=== PATIENT | female | born 1980 | race Caucasian/White ===

== ENCOUNTER 2016-10-13 11:12 | Emergency (ER) | payer SELFPAY ==
--- NOTE | 2016-10-13 11:28 | EDM.PDOC ---
ED HPI GENERAL MEDICAL PROBLEM - General Chief Complaint: Gastrointestinal Problem Stated Complaint: THROWING UP Time Seen by Provider: 10/13/16 11:27 Source of Information: Reports: Patient - History of Present Illness INITIAL COMMENTS - FREE TEXT/NARRATIVE: HISTORY AND PHYSICAL: History of present illness: []Patient presents with vomiting over the last 24 hours States she does feel feverish with nausea and of course multiple episodes of vomiting unable to keep down any food even saltine crackers, no diarrhea constipation chest pain shortness breath headache dizziness or palpitation no bowel or urine symptoms History of IV drug use, the patient does think she has hepatitis C is not certain she may have had some testing done through [facility] Review of systems: As per history of present illness and below otherwise all systems reviewed and negative. Past medical history: As per history of present illness and as reviewed below otherwise noncontributory. Surgical history: As per history of present illness and as reviewed below otherwise noncontributory. Social history: No reported history of drug or alcohol abuse. Family history: As per history of present illness and as reviewed below otherwise noncontributory. Physical exam: HEENT: Atraumatic, normocephalic, pupils reactive, negative for conjunctival pallor or scleral icterus, mucous membranes moist, throat clear, neck supple, nontender, trachea midline. Lungs: Clear to auscultation, breath sounds equal bilaterally, chest nontender. Heart: S1S2, regular, negative for clicks, rubs, or JVD. Abdomen: Soft, nondistended, nontender. Negative for masses or hepatosplenomegaly. Negative for costovertebral tenderness. Pelvis: Stable nontender. Genitourinary: Deferred. Rectal: Deferred. Extremities: Atraumatic, negative for cords or calf pain. Neurovascular unremarkable. Neuro: Awake, alert, oriented. Cranial nerves II through XII unremarkable. Cerebellum unremarkable. Motor and sensory unremarkable throughout. Exam nonfocal. Diagnostics: []Lab as below Ultrasound right upper quadrant limited CT abdomen pelvis with contrast Therapeutics: []1 L normal saline bolus Zofran 8 mg IV After lengthy workup and consultation with GI in mind Dr. Terri López we were awaiting the INR results to decide if we would admit the patient here in [place] for transfer to [facility], patient became impatient and essentially eloped to smoke a cigarette she desired to drive to minus nursing staff caught up with her in the parking lot did remove her IV patient states she will be traveling to [place] will be seen through the ER on her own she has her boyfriend that is driving her. I feel that she probably will show up in mind that however she eloped from our ER tonight, I did call and talk to El[place] Rodriguez knee is updated that if she does show up in mind that we have lots of lab and imaging that we can forward onto them and Dr. Mead GI specialist is also aware patient Impression: []Vomiting Elevated liver function History of IV drug use Definitive disposition and diagnosis as appropriate pending reevaluation and review of above. headache Pain Score (Numeric/FACES): 6 - Related Data Allergies Allergy/AdvReac Type Severity Reaction Status Date / Time Penicillins Allergy Swelling Verified 10/13/16 11:30 Home Meds: Home Meds Cephalexin [Keflex] 500 mg PO Q6HR 10/13/16 [History] Past Medical History - Past Health History Medical/Surgical History: Denies Medical/Surgical History Social & Family History - Family History Endocrine/Metabolic: Reports: Diabetes, Type I Oncologic: Reports: Other (See Below) Other Oncologic Family History: stomach ca - Tobacco Use Smoking Status *Q: Current Every Day Smoker Years of Tobacco use: 5 Packs/Tins Daily: 0.5 - Caffeine Use Caffeine Use: Reports: Coffee - Recreational Drug Use Recreational Drug Use: No ED ROS GENERAL - Review of Systems Review Of Systems: ROS reveals no pertinent complaints other than HPI. ED EXAM, GENERAL - Physical Exam Exam: See Below Course - Vital Signs Last Recorded V/S: Last Vital Signs Temp 36.6 C 10/13/16 14:20 Pulse 84 10/13/16 14:20 Resp 16 10/13/16 14:20 BP 102/59 L 10/13/16 14:20 Pulse Ox 98 10/13/16 14:20 - Orders/Labs/Meds Orders: Active Orders 24 hr Category Date Time Status HEPATITIS PANEL, ACUTE [REF] Stat Lab 10/13/16 11:35 Received Labs: Laboratory Tests 10/13/16 10/13/16 10/13/16 Range/Units 11:35 11:35 11:35 WBC 6.33 (4.0-11.0) K/uL RBC 4.67 (4.30-5.90) M/uL Hgb 13.5 (12.0-16.0) g/dL Hct 39.5 (36.0-46.0) % MCV 84.6 (80.0-98.0) fL MCH 28.9 (27.0-32.0) pg MCHC 34.2 (31.0-37.0) g/dL RDW Std Deviation 40.9 (28.0-62.0) fl RDW Coeff of Eliud 14 (11.0-15.0) % Plt Count 195 (150-400) K/uL MPV 8.80 (7.40-12.00) fL Add Manual Diff YES Neutrophils % (Manual) 59 (48.0-80.0) % Band Neutrophils % 24 % Lymphocytes % (Manual) 11 L (16.0-40.0) % Monocytes % (Manual) 5 (0.0-15.0) % Eosinophils % (Manual) 1 (0.0-7.0) % Nucleated RBC % 0.0 /100WBC Absolute Seg Neuts 3.7 Band Neutrophils # 1.5 Lymphocytes # (Manual) 0.7 Monocytes # (Manual) 0.3 Eosinophils # (Manual) 0.1 Nucleated RBCs # 0 K/uL INR 1.26 H (0.86-1.11) Sodium 134 L (136-146) mmol/L Potassium 3.4 L (3.5-5.1) mmol/L Chloride 102 (98-110) mmol/L Carbon Dioxide 20 L (21-31) mmol/L BUN 14 (6.0-23.0) mg/dL Creatinine 0.9 (0.6-1.5) mg/dL Est Cr Clr Drug Dosing 72.17 mL/min Estimated GFR (MDRD) > 60.0 ml/min Glucose 152 H (60-110) mg/dL Calcium 8.7 L (8.8-10.8) mg/dL Total Bilirubin 2.6 H (0.1-1.5) mg/dL AST 349 H (5-40) IU/L ALT 657 H (8-54) IU/L Alkaline Phosphatase 256 H (40-150) Ammonia (14-68) UG/DL Total Protein 7.2 (6.0-8.0) g/dL Albumin 3.8 (3.5-5.0) g/dL Globulin 3.4 (2.0-3.5) g/dL Albumin/Globulin Ratio 1.1 L (1.3-2.8) Urine Color Urine Appearance Urine pH (5.0-8.0) Ur Specific [place] (1.001-1.035) Urine Protein (NEGATIVE) mg/dL Urine Glucose (UA) (NEGATIVE) mg/dL Urine Ketones (NEGATIVE) mg/dL Urine Occult Blood (NEGATIVE) Urine Nitrite (NEGATIVE) Urine Bilirubin (NEGATIVE) Urine Urobilinogen (<2.0) EU/dL Ur Leukocyte Esterase (NEGATIVE) Urine RBC (0-2/HPF) Urine WBC (0-5/HPF) Ur Epithelial Cells (NONE-FEW) Urine Bacteria (NEGATIVE) Urine HCG, Qual (NEGATIVE) 10/13/16 10/13/16 10/13/16 Range/Units 11:40 11:40 14:11 WBC (4.0-11.0) K/uL RBC (4.30-5.90) M/uL Hgb (12.0-16.0) g/dL Hct (36.0-46.0) % MCV (80.0-98.0) fL MCH (27.0-32.0) pg MCHC (31.0-37.0) g/dL RDW Std Deviation (28.0-62.0) fl RDW Coeff of Eliud (11.0-15.0) % Plt Count (150-400) K/uL MPV (7.40-12.00) fL Add Manual Diff Neutrophils % (Manual) (48.0-80.0) % Band Neutrophils % % Lymphocytes % (Manual) (16.0-40.0) % Monocytes % (Manual) (0.0-15.0) % Eosinophils % (Manual) (0.0-7.0) % Nucleated RBC % /100WBC Absolute Seg Neuts Band Neutrophils # Lymphocytes # (Manual) Monocytes # (Manual) Eosinophils # (Manual) Nucleated RBCs # K/uL INR (0.86-1.11) Sodium (136-146) mmol/L Potassium (3.5-5.1) mmol/L Chloride (98-110) mmol/L Carbon Dioxide (21-31) mmol/L BUN (6.0-23.0) mg/dL Creatinine (0.6-1.5) mg/dL Est Cr Clr Drug Dosing mL/min Estimated GFR (MDRD) ml/min Glucose (60-110) mg/dL Calcium (8.8-10.8) mg/dL Total Bilirubin (0.1-1.5) mg/dL AST (5-40) IU/L ALT (8-54) IU/L Alkaline Phosphatase (40-150) Ammonia 88 H (14-68) UG/DL Total Protein (6.0-8.0) g/dL Albumin (3.5-5.0) g/dL Globulin (2.0-3.5) g/dL Albumin/Globulin Ratio (1.3-2.8) Urine Color DARK YELLOW Urine Appearance CLEAR Urine pH 5.5 (5.0-8.0) Ur Specific [place] >= 1.030 (1.001-1.035) Urine Protein 30 (NEGATIVE) mg/dL Urine Glucose (UA) NEGATIVE (NEGATIVE) mg/dL Urine Ketones TRACE H (NEGATIVE) mg/dL Urine Occult Blood NEGATIVE (NEGATIVE) Urine Nitrite NEGATIVE (NEGATIVE) Urine Bilirubin MODERATE H (NEGATIVE) Urine Urobilinogen 4.0 H (<2.0) EU/dL Ur Leukocyte Esterase NEGATIVE (NEGATIVE) Urine RBC 0-2 (0-2/HPF) Urine WBC 0-2 (0-5/HPF) Ur Epithelial Cells FEW (NONE-FEW) Urine Bacteria RARE (NEGATIVE) Urine HCG, Qual NEGATIVE (NEGATIVE) Meds: Medications Discontinued Medications Generic Name Dose Route Start Last Admin Trade Name Freq PRN Reason Stop Dose Admin Sodium Chloride 1,000 mls @ 999 mls/hr 10/13/16 12:48 10/13/16 13:18 Normal Saline IV 10/13/16 13:48 999 mls/hr STAT ONE Administration Iopamidol 100 ml 10/13/16 13:30 10/13/16 13:52 Isovue Multipack-370 (76%) IVPUSH 10/13/16 13:31 100 ml ONETIME STA Administration Ketorolac Tromethamine 30 mg 10/13/16 12:34 10/13/16 12:45 Toradol IVPUSH 10/13/16 12:35 Not Given ONETIME ONE Ketorolac Tromethamine 30 mg 10/13/16 13:01 10/13/16 12:45 Toradol IM 10/13/16 13:02 30 mg ONETIME ONE Administration Ondansetron HCl 8 mg 10/13/16 12:48 10/13/16 13:19 Zofran IVPUSH 10/13/16 12:49 8 mg ONETIME ONE Administration Departure - Departure Time of Disposition: 17:46 Disposition: Eloped 07 Condition: Poor Clinical Impression: Elevated liver function tests - Discharge Information Forms: ED Department Discharge - My Orders Last 24 Hours: My Active Orders 10/13/16 11:35 HEPATITIS PANEL, ACUTE [REF] Stat - Assessment/Plan Last 24 Hours: My Active Orders 10/13/16 11:35 HEPATITIS PANEL, ACUTE [REF] Stat
[2016-10-13 12:17] LABS: CHLORIDE,CL 102 mmol/L (98-110); SODIUM,NA 134 mmol/L (136-146)
[2016-10-13] MEDS ORDERED: Ketorolac 30 MG/ML SDV IVPUSH ONE (12:34)
[2016-10-13] MEDS ORDERED: Ondansetron 4 MG/2 ML SDV IVPUSH ONE (12:48)
[2016-10-13] MEDS ORDERED: Sodium Chloride 0.9% 1,000 ML IV ONE (12:48)
[2016-10-13] MEDS ORDERED: Ketorolac 30 MG/ML SDV IM ONE (13:01)
--- NOTE | 2016-10-13 13:21 | US ---
EXAMINATION: Right upper quadrant ultrasound HISTORY: Vomiting, elevated liver enzymes COMPARISON: None TECHNIQUE: Grayscale and color Doppler images obtained of the right upper quadrant. FINDINGS: The visualized pancreas appears normal. The liver is normal in contour and echogenicity wi thout a focal hepatic mass. The gallbladder wall thickness is borderline however the gallbladder is minimally filled. No pericholecystic fluid or shadowing gallstones. The common bile duct measures 3 mm. Right kidney measures 10.2 cm [id number] without evidence of hydronephrosis. The sonographic M urphy sign is negative. The stomach appears mildly distended with gastric material. IMPRESSION: 1. The liver appears normal in contour and heterogeneous density. 2. The stomach appears distended and fluid-filled. Correlate clinically for obstruction.
[2016-10-13] MEDS ORDERED: Iopamidol 755 MG/ML 500 ML Multipack Bottle IVPUSH STA (13:30)
--- NOTE | 2016-10-13 14:14 | CT ---
CT of the abdomen and pelvis with contrast. HISTORY: Pain TECHNIQUE: Axial CT images were obtained of the abdomen and pelvis following administration of 100 m L of Isovue-370 in the left hand without complication. Coronal and sagittal reconstructions obtained . FINDINGS: The lung bases are clear, no pleural effusion. Mild dependent atelectasis is noted. The liver appears heterogeneous in overall enhancement and appearance without a focal mass. There is mild pericholecystic fluid, otherwise no gallbladder wall thickening or cholelithiasis. The stomach appears distended to the level of the duodenum without definite obstruction. The spleen, adrenal gl ands, and pancreas appear normal. No bulky retroperitoneal lymphadenopathy or abdominal ascites. The re is mild periportal edema. The kidneys enhance and function symmetrically without evidence of obstructive uropathy. The large and small bowel are normal in caliber without evidence of obstruction. However the majorit y of the small bowel appears decompressed. Stool is noted throughout the colon. No pericolonic infla mmation or stranding. The appendix appears normal. The urinary bladder appears normal. The uterus a nd ovaries are unremarkable. No free pelvic fluid. No suspicious osseous abnormalities. IMPRESSION: 1. Liver appears heterogeneous and hypoechoic, correlate clinically for hepatitis. 2. Pericholecystic fluid without gallbladder wall thickening or cholelithiasis. This may be extensio n of the periportal edema. 3. The stomach appears distended without an obvious transition point to suggest obstruction.
[2016-10-13 14:45] VITALS: BP 102/59
== END 2016-10-13 17:20 | disposition left against medical advice (07) ==
LOC: MW.ED 11:12
DX: R11.2 Nausea with vomiting, unspecified (principal); R79.89 Other specified abnormal findings of blood chemistry; F17.210 Nicotine dependence, cigarettes, uncomplicated; Z88.0 Allergy status to penicillin
CPT/HCPCS: 36415; 74177; 76705; 80053; 80074; 81001; 81025; 82140; 85025; 85610; 96361; 96374; 96375; 99284; J1885; J2405; J7040; Q9967; 99285

== ENCOUNTER 2017-12-21 05:38 | Inpatient (IN) | payer BC, MEDICAID ==
[2017-12-21] MEDS ORDERED: Nalbuphine 10 MG/1 ML Vial IVPUSH PRN (05:55)
[2017-12-21] MEDS ORDERED: Carboprost Tromethamine 250 MCG/1 ML Amp IM PRN (05:55)
[2017-12-21] MEDS ORDERED: Methylergonovine 0.2 MG/1 ML Amp IM PRN (05:55)
[2017-12-21] MEDS ORDERED: Lidocaine 1% 50 ML MDV INJECT PRN (05:55)
[2017-12-21] MEDS ORDERED: Water For Irrigation,Sterile 1,000 ML Container IRR PRN (05:55)
[2017-12-21] MEDS ORDERED: Tranexamic Acid 1,000 MG in Sodium Chloride 0.9% 100 ML IV PRN (05:55)
[2017-12-21] MEDS ORDERED: Butorphanol 1 MG/ML SDV IVPUSH PRN (05:55)
[2017-12-21] MEDS ORDERED: Misoprostol 200 MCG Tab PO PRN (05:55)
[2017-12-21] MEDS ORDERED: Oxytocin/0.9 % Sodium Chloride 30 UNIT/500 ML BAG IV SCH (06:00)
[2017-12-21] MEDS ORDERED: Lactated Ringers 1,000 ML IV SCH (06:00)
[2017-12-21] MEDS ORDERED: Acetaminophen 500 MG Tab PO PRN ×2 (06:34)
[2017-12-21] MEDS ORDERED: Lanolin 100% Cream 7 GM Tube TOP PRN (06:34)
[2017-12-21] MEDS ORDERED: Docusate Sodium 100 MG Cap PO PRN (06:34)
[2017-12-21] MEDS ORDERED: Bisacodyl 10 MG Supp RECTAL PRN (06:34)
[2017-12-21] MEDS ORDERED: Benzocaine/Menthol 20%-0.5% Spray 78 GM Cannister TOP PRN (06:34)
[2017-12-21] MEDS ORDERED: Witch Hazel Medicated Pads 40/Jar TOP PRN (06:34)
[2017-12-21] MEDS ORDERED: oxyCODONE 5 MG Tab PO PRN (06:34)
[2017-12-21] MEDS ORDERED: Ibuprofen 800 MG Tab PO PRN (06:34)
[2017-12-21] MEDS ORDERED: Ibuprofen 400 MG Tab PO PRN (06:34)
--- NOTE | 2017-12-21 06:34 | PCM.LDHP ---
L&D History of Present Illness - General Date of Service: 12/21/17 Admit Problem/Dx: Patient Status Order with Admit Dx/Problem 12/21/17 05:56 Patient Status [ADT] Routine Admission Diagnosis/Problem Admission Diagnosis/Problem -related examination Source of Information: Patient History Limitations: Reports: No Limitations - History of Present Illness Improves with: Reports: None Worsens with: Reports: None Associated Symptoms: Reports: N - Related Data Allergies/Adverse Reactions: Allergies Allergy/AdvReac Type Severity Reaction Status Date / Time Penicillins Allergy Swelling Verified 10/13/16 11:30 Home Medications: Home Meds Cephalexin [Keflex] 500 mg PO Q6HR 10/13/16 [History] Past Medical History - Past Health History Medical/Surgical History: Denies Medical/Surgical History HEENT History: Reports: None Cardiovascular History: Reports: None Respiratory History: Reports: None Gastrointestinal History: Reports: None Genitourinary History: Reports: None [employer]OR OF [employer]ALS History: Reports: Musculoskeletal History: Reports: None Neurological History: Reports: None Psychiatric History: Reports: None Endocrine/Metabolic History: Reports: None Hematologic History: Reports: None Immunologic History: Reports: None Oncologic (Cancer) History: Reports: None Dermatologic History: Reports: None - Infectious Disease History Infectious Disease History: Reports: None - Past Surgical History Female Surgical History: Reports: None Social & Family History - Family History Family Medical History: Noncontributory Endocrine/Metabolic: Reports: Diabetes, Type I Oncologic: Reports: Other (See Below) Other Oncologic Family History: stomach ca - Caffeine Use Caffeine Use: Reports: Coffee H&P Review of Systems - Review of Systems: Review Of Systems: See Below General: Reports: No Symptoms HEENT: Reports: No Symptoms Pulmonary: Reports: No Symptoms Cardiovascular: Reports: No Symptoms Gastrointestinal: Reports: No Symptoms Genitourinary: Reports: No Symptoms Musculoskeletal: Reports: No Symptoms Skin: Reports: No Symptoms Psychiatric: Reports: No Symptoms Neurological: Reports: No Symptoms Hematologic/Lymphatic: Reports: No Symptoms Immunologic: Reports: No Symptoms L&D Exam - Exam Exam: See Below - Vital Signs Weight: 72.575 kg - OB Specific Fundal Height In cm: 37 Contraction Intensity: Moderate to Strong Movement: Active Heart Tones: Present Presentation: Vertex - Mata Score Mata Score Cervix Position: Anterior Mata Score Consistency: Soft Mata Score Effacement: >80% Mata Score Dilation: > 5 cm Mata Score 's Station: -1 ,0 Mata Score Total: 12 - Exam General: Alert, Oriented HEENT: PERRLA, Conjunctiva Clear, EACs Clear, EOMI, Hearing Intact, Mucosa Moist & [place], Nares Patent, Normal Nasal Septum, Posterior Pharynx Clear, TMs Clear Neck: Supple, Trachea Midline Lungs: Clear to Auscultation, Normal Respiratory Effort Cardiovascular: Regular Rate, Regular Rhythm GI/Abdominal Exam: Normal Bowel Sounds, Soft, Non-Tender, No Organomegaly, No Distention, No Abnormal Bruit, No Mass, Pelvis Stable Rectal Exam: Normal Exam, Normal Rectal Tone Genitourinary: Normal external exam, Normal bimanual exam, Normal speculum exam Back Exam: Normal Inspection, Full Range of Motion Extremities: Normal Inspection, Normal Range of Motion, Non-Tender, No Pedal Edema, Normal Capillary Refill Skin: Warm, Dry, Intact Neurological: Cranial Nerves Intact, Reflexes Equal Bilateral Psychiatric: Alert, Normal Affect, Normal Mood - Patient Data Lab Results Last 24 hrs: Laboratory Results - last 24 hr 12/21/17 Range/Units 06:15 WBC 14.09 H (4.0-11.0) K/uL RBC 4.33 (4.30-5.90) M/uL Hgb 13.0 (12.0-16.0) g/dL Hct 37.6 (36.0-46.0) % MCV 86.8 (80.0-98.0) fL MCH 30.0 (27.0-32.0) pg MCHC 34.6 (31.0-37.0) g/dL RDW Std Deviation 42.2 (28.0-62.0) fl RDW Coeff of Eliud 14 (11.0-15.0) % Plt Count 245 (150-400) K/uL MPV 9.80 (7.40-12.00) fL Nucleated RBC % 0.1 /100WBC Nucleated RBCs # 0 K/uL Result Diagrams: 12/21/17 06:15 Problem List Initiated/Reviewed/Updated: Yes Orders Last 24hrs: Active Orders 24 hr Category Date Time Status Patient Status [ADT] Routine ADT 12/21/17 05:56 Active Heart Tones [RC] CONTINUOUS Care 12/21/17 05:56 Active Non Stress Test [RC] PER UNIT ROUTINE Care 12/21/17 05:56 Active May Shower [RC] ASDIRECTED Care 12/21/17 05:56 Active Notify Provider [RC] PRN Care 12/21/17 05:56 Active Up ad Mona [RC] ASDIRECTED Care 12/21/17 05:56 Active Vaginal Exam [RC] PRN Care 12/21/17 05:56 Active Vital Signs [RC] PER UNIT ROUTINE Care 12/21/17 05:56 Active Clear Liquid Diet [DIET] Diet 12/21/17 Breakfast Active TYPE AND SCREEN [BBK] Routine Lab 12/21/17 06:15 Received Butorphanol [Stadol] Med 12/21/17 05:55 Active 1 mg IVPUSH ASDIRECTED PRN Carboprost Tromethamine [Hemabate DS] Med 12/21/17 05:55 Active 250 mcg IM ASDIRECTED PRN Lactated Ringers [Ringers, Lactated] 1,000 ml Med 12/21/17 06:00 Active IV ASDIRECTED Lidocaine 1% [Xylocaine 1%] Med 12/21/17 05:55 Active 50 ml INJECT ONETIME PRN Methylergonovine [Methergine] Med 12/21/17 05:55 Active 0.2 mg IM ASDIRECTED PRN Nalbuphine [Nubain] Med 12/21/17 05:55 Active 10 mg IVPUSH ASDIRECTED PRN Oxytocin/0.9 % Sodium Chloride [Oxytocin 30 Unit/500 ML Med 12/21/17 06:00 Active -NS] 30 unit in 500 ml IV TITRATE Tranexamic Acid [Cyklokapron] 1,000 mg Med 12/21/17 05:55 Active Sodium Chloride 0.9% [Normal Saline] 100 ml IV ONETIME Water For Irrigation,Sterile [Sterile Water for Med 12/21/17 05:55 Active Irrigation] 1,000 ml IRR ASDIRECTED PRN miSOPROStol [Cytotec] Med 12/21/17 05:55 Active 200 mcg PO ONETIME PRN Scalp Electrode [WOMSER] Per Unit Routine Oth 12/21/17 05:56 Ordered Resuscitation Status Routine Resus Stat 12/21/17 05:55 Ordered Medication Orders Butorphanol Tartrate (Stadol) 1 mg IVPUSH ASDIRECTED PRN PRN Reason: Pain Carboprost Tromethamine (Hemabate Ds) 250 mcg IM ASDIRECTED PRN PRN Reason: Post Hemorrhage Lactated Ringer's (Ringers, Lactated) 1,000 mls @ 150 mls/hr IV ASDIRECTED DOLORES Oxytocin/Sodium Chloride (Oxytocin 30 Unit/500 Ml-Ns) 30 unit in 500 mls @ 999 mls/hr IV TITRATE DOLORES Tranexamic Acid 1,000 mg/ (Sodium Chloride) 110 mls @ 660 mls/hr IV ONETIME PRN PRN Reason: Bleeding Lidocaine HCl (Xylocaine 1%) 50 ml INJECT ONETIME PRN PRN Reason: Laceration repair Methylergonovine Maleate (Methergine) 0.2 mg IM ASDIRECTED PRN PRN Reason: Post Hemorrhage Misoprostol (Cytotec) 200 mcg PO ONETIME PRN PRN Reason: Post Hemorrhage Nalbuphine HCl (Nubain) 10 mg IVPUSH ASDIRECTED PRN PRN Reason: Pain (severe 7-10) Sterile Water (Sterile Water For Irrigation) 1,000 ml IRR ASDIRECTED PRN PRN Reason: delivery Assessment/Plan Comment:: Term No care in our area.
--- NOTE | 2017-12-21 07:48 | OR ---
SURGEON: Elbert Beckman MD DATE OF PROCEDURE: 12/21/2017 Ms. Andersen is a 37-year-old patient. She had no care in our area. She claims she was seen by a doctor in [place], but at this time, there is no record available. The patient presented to our facility in active labor. According to the patient and her is that she is supposed to be induced next week. There is no care available. Her GBS status is not available. She is transferred from to our Labor and Delivery. Progressed rather rapidly. She was admitted at 7, she went to 9 and complete, and at the time of my attendance, she was complete, vertex, and intact bag of water, rupture of the membrane. Meconium was noted, and the weigher and mixer properly notified. The patient was pushed, and she accomplished normal spontaneous vaginal delivery of a male fetus. The fetus cried immediately after suctioning, and score 8 and 9. The weight is not available at this time. Placenta delivered spontaneous, complete, and intact without any problem. There was no tear, perineal or labial, and there was no laceration. The episiotomy was not needed. Estimated blood loss in this delivery was 250 to 300 mL. There was no complication. heart rate was category 1 through the entire process of labor. MANUEL / BOO /[id number]
== END 2017-12-21 10:45 | disposition home or self-care (01) | DRG 775 ==
LOC: MW.OBCHECK 05:38 → MW.OB 05:39 → MW.OBCHECK 05:56 → MW.OB 05:56 → OBSVTOIN 06:24
PROVIDERS: ADMIT Obstetrics & Gynecology; ATTEND Obstetrics & Gynecology
PROC: 10E0XZZ Delivery of Products of Conception, External Approach (ICD-10-PCS; principal; 2017-12-21)
DX: O77.0 Labor and delivery complicated by meconium in amniotic fluid (principal); Z3A.40 40 weeks gestation of pregnancy; Z37.0 Single live birth
CPT/HCPCS: 36415; 59025; 59409; 85027; 86850; 86900; 86901; A9270-GY; J2590; J7120